=== PATIENT | male | born 1970 | race Caucasian/White ===

== ENCOUNTER → 2017-07-01 | Outpatient (CLI) | payer SELFPAY ==
[~2017-07-01] MED LIST: SUCCINYLCHOLINE CHLORIDE 100 MG/5 ML SYRINGE IV PUSH ONE
== END ==
LOC: HEDF 21:29
DX: T71.192A Asphyxiation due to mechanical threat to breathing due to other causes, intentional self-harm, initial encounter (principal); X83.8XXA Intentional self-harm by other specified means, initial encounter; Y93.89 Activity, other specified; Y92.821 Forest as the place of occurrence of the external cause
CPT/HCPCS: A0431; A0436; J0330